=== PATIENT | male | born 1975 | race Caucasian/White ===

== ENCOUNTER 2017-09-14 09:43 | Emergency (ER) | payer OTHER | END 2017-09-14 14:15 | disposition home or self-care (01) | LOC: E/R 09:43 → FTE 14:15 | DX: H61.22 Impacted cerumen, left ear (principal) | CPT/HCPCS: 69210; 99282-25 ==

== ENCOUNTER 2018-03-24 22:33 | Emergency (ER) | payer OTHER ==
[2018-03-24] MEDS: HYDROCODONE/APAP (5/325) TAB PO (23:34)
== END 2018-03-24 23:48 | disposition home or self-care (01) ==
LOC: FTE 23:48
DX: H60.91 Unspecified otitis externa, right ear (principal)
CPT/HCPCS: 99283; Z7502

== ENCOUNTER 2018-03-27 07:06 | Emergency (ER) | payer OTHER ==
[2018-03-27] MEDS: SOD CHLORIDE 0.9% 100 ML (07:57)
[2018-03-27] MEDS: IOHEXOL 300MG/ML 150 ML BTL (07:57)
[2018-03-27 08:06] LABS: ADD MAN DIFF? NO
[2018-03-27 08:08] LABS: BASOPHIL # 0.1 10^3/ul (0.0-0.1); BASOPHILS % 0.5 % (0.0-2.0); EOSINOPHILS # 0.4 10^3/ul (0.0-0.5); EOSINOPHILS % 3.8 % (0.0-7.0); HEMATOCRIT 41.5 % (42.0-52.0); LYMPHOCYTES # 2.8 10^3/ul (0.8-2.9); LYMPHOCYTES % 30.7 % (15.0-51.0); MEAN CORPUSCULAR HEMOGLOBIN 29.7 pg (29.0-33.0); MEAN CORPUSCULAR HGB CONC 33.7 g/dl (32.0-37.0); MEAN CORPUSCULAR VOLUME 87.9 fl (82.0-101.0); MEAN PLATELET VOLUME 10.2 fl (7.4-10.4); MONOCYTE # 1.1 10^3/ul (0.3-0.9); MONOCYTES % 12.1 % (0.0-11.0); NEUTROPHIL # 4.8 10^3/ul (1.6-7.5); NEUTROPHILS % 52.6 % (39.0-77.0); PLATELET COUNT 216 10^3/UL (140-415); RED BLOOD COUNT 4.72 10^6/ul (4.70-6.10); RED CELL DISTRIBUTION WIDTH 12.6 % (11.5-14.5)
[2018-03-27 08:08] LABS: WHITE BLOOD COUNT 9.2 10^3/ul (4.8-10.8)
[2018-03-27] MEDS: morphine 4 MG/ML VIAL IV (08:25)
[2018-03-27] MEDS: METHYLPREDNISOLONE 125 MG INJ IV (08:25)
[2018-03-27 08:28] LABS: ALANINE AMINOTRANSFERASE 30 IU/L (13-69); ALBUMIN 3.6 g/dl (3.3-4.9); ALBUMIN/GLOBULIN RATIO 1.16; ALKALINE PHOSPHATASE 70 IU/L (42-121); ANION GAP 12 (8-16); ASPARTATE AMINO TRANSFERASE 24 IU/L (15-46); BILIRUBIN,INDIRECT 0.3 mg/dl (0-1.1); BILIRUBIN,TOTAL 0.3 mg/dl (0.2-1.3); BLOOD UREA NITROGEN 15 mg/dl (7-20); CALCIUM 9.7 mg/dl (8.4-10.2); CARBON DIOXIDE 26 mmol/L (21-31); CHLORIDE 108 mmol/L (97-110); CREATININE 0.84 mg/dl (0.61-1.24); GLUCOSE 91 mg/dl (70-220); POTASSIUM 4.6 mmol/L (3.5-5.1); SODIUM 141 mmol/L (135-144); TOTAL PROTEIN 6.7 g/dl (6.1-8.1)
[2018-03-27] MEDS: SOD CHLORIDE 0.9% 500 ML IV (11:03)
== END 2018-03-27 11:56 | disposition home or self-care (01) ==
LOC: FTE 07:06
DX: H66.91 Otitis media, unspecified, right ear (principal); H60.91 Unspecified otitis externa, right ear
CPT/HCPCS: 36415; 70480; 80053; 85025; 96374; 96375; 99285-25

== ENCOUNTER 2018-10-17 01:28 | Emergency (ER) | payer OTHER | END 2018-10-17 07:23 | disposition home or self-care (01) | LOC: FTE 07:23 | DX: S69.91XA Unspecified injury of right wrist, hand and finger(s), initial encounter (principal); F17.210 Nicotine dependence, cigarettes, uncomplicated; V00.131A Fall from skateboard, initial encounter | CPT/HCPCS: 73110; 73110-RT; 99283-25 ==